=== PATIENT | male | born 1965 | race Caucasian/White ===

== ENCOUNTER 2020-03-18 17:50 | Emergency (ER) | payer OTHER ==
[~2020-03-18] VITALS: Ht 182.9 cm; Wt 92.2 kg
--- NOTE | 2020-03-18 17:55 | PHYS DOC ---
Past History Past Medical History: High Cholesterol, Other Past Medical History Circumcision Smoking: Non-smoker Alcohol Use: Rarely Drug Use: None General Adult HPI: HPI: ".. I started getting some abd. pain.. yesterday.. deshawn mid and lower... here on the right.... but it has gotten much worse.. maybe it is down near where appendix is..? " Patient is a 54 year old male who presents with above hx and complaints malaise, nausea, intermittent severe abdomen pain, diaphoresis, and tachycardia.. Patient currently follows with local medical clinic but does not have yearly follow-ups. Patient denied any previous cardiac issues. His family history father had WI at age 56. Patient after eating some chicken yesterday developed abdomen pain that has persisted the last 24 hours . The abdomen pain localizes to Rt. Mid and Lower on rebound. Pt. has some Rt. flank tenderness on percussion. . The patient was noted to be very tachycardic on my initial exam. Monitor shows a Afib. rhythm with rapid ventricular response in rates up to 200. There is strain pattern and irregularity consistent with Afib. .. Initial EKG showed a tachycardia which appears to be supra ventricular in origin and ventricle rate 178 bpm. There is a strain pattern in inferior leads. Over all morphology consistent with Afib. Patient has had very little intake since eating out yesterday because of nausea and the Abd. discomfort. Patient denies excessive use of caffeine or drugs or [id number] meds. Patient does not use excessive caffeine use. (Possible two caffeine drinks a day, tea, or pop.). Patient denies any history of A. fib or cardiac dysrhythmias. Some hx of elevated cholesterol. Never has had a cardiac stress test. Patient has no history of kidney stones or colitis with him or family members. Patient does have some localization of his pain in right mid abdomen and flank. Patient did note his urine was somewhat yellow or more concentrated than usual. Patient denies any travel outside [facility]. Patient denies any trauma. Patient denies any immune suppression. Denies any intake of bad food. The patient denies any ill contacts. Patient does not smoke. No history of abdomen surgeries other than circumcision. Review of Systems: Review of Systems: Constitutional: Denies fever or chills Eyes: Denies change in visual acuity HENT: Denies nasal congestion or sore throat Respiratory: Denies cough or shortness of breath Cardiovascular: Complaints of tachycardia GI: Complaints mid and Rt. abdominal pain, nausea,. Denies vomiting, bloody stools or diarrhea : Denies dysuria Musculoskeletal: Denies back pain or joint pain Integument: Diaphoretic Neurologic: Denies headache, focal weakness or sensory changes Endocrine: Denies polyuria or polydipsia Lymphatic: Denies swollen glands Psychiatric: Denies depression or anxiety Heart Score: HEART Score for Chest Pain: HEART Score for Chest Pain Response (Comments) Value History Moderately Suspicious 1 ECG Nonspecific Repolarizatio 1 Age > 65 2 Risk Factors 1 or 2 Risk Factors 1 Troponin < Normal Limit 0 Total 5 Risk Factors: Risk Factors: DM, Current or recent (<one month) smoker, HTN, HLP, family history of CAD, obesity. Risk Scores: Score 0 - 3: 2.5% MACE over next 6 weeks - Discharge Home Score 4 - 6: 20.3% MACE over next 6 weeks - Admit for Clinical Observation Score 7 - 10: 72.7% MACE over next 6 weeks - Early Invasive Strategies Family History: Family History: Father had WI at age 56 Current Medications: Current Meds: See nursing for home meds Allergies: Allergies: No known drug allergies Physical Exam: PE: Constitutional: Well developed, well nourished, moderate acute distress, ill in appearance. [] HENT: Normocephalic, atraumatic, bilateral external ears normal, oropharynx dry, no oral exudates, nose normal. [] Eyes: PERRLA, EOMI, conjunctiva normal, no discharge. [Glasses Neck: Normal range of motion, no tenderness, supple, no stridor. [] Cardiovascular: Tachycardia heart rate with episodes of irregular rhythm, no murmur []Monitor show a Afib . pattern., Rates up into 200 range. Lungs & Thorax: Bilateral breath sounds equal apex on auscultation [] Abdomen: Bowel sounds decreased,, soft, right mid abdomen and flank tenderness, no masses, no pulsatile masses. [] Some right flank percussion pain and some f ocalization on rebound to right low lower and midabdomen. Testicles nontender, circumcised male. Pt. declines rectal exam at this time. ( No hx of abnormal stool in character and color). Skin: Warm, diaphoretic, no erythema, no rash. Pt. has soaked his shirt with sweat. Back: No tenderness, some Rt. lower CVA tenderness. [] Extremities: No tenderness, no cyanosis, no clubbing, ROM intact, no edema. [Does have a positive psoas sign on right heel tap. Patient does have a somewhat guarded gait-but was able to walk to the exam room without significant problem. Neurologic: Alert and oriented X 3, normal motor function, normal sensory function, no focal deficits noted. DTRs +2 patellar and brachial. Psychologic: Affect anxious , judgement normal, mood normal. [] EKG: EKG: My interpretation EKG shows a tachycardia 178 bpm contour abnormality does have some strain pattern inferior leads, overall morphology rhythm appears to be A. fib with a rapid ventricular response [] 1822 Repeat EKG per my interpretation shows a sinus rhythm at 81 bpm and a leftward axis. 2011 hrs. ( The patient spontaneously reverted to a sinus rhythm without Cardizem administered and anticoagulation at time of second IV) Radiology/Procedures: Radiology/Procedures: [address] [address] IMAGING REPORT Signed PATIENT: KAISER PEDROOUNT: [id number] : 1965 LOCATION: ER AGE: 54 SEX: M EXAM STATUS: REG ER ORD. PHYSICIAN: REGI MENCHACA MD REASON: Rt. abd. and flank pain PROCEDURE: CT ABDOMEN PELVIS WO CONTRAST CT scan of the abdomen and pelvis without contrast 03/18/2020 CLINICAL HISTORY: Right-sided abdominal pain. TECHNIQUE: Unenhanced, contiguous, 3 mm axial sections were obtained through the abdomen and pelvis. One or more of the following individualized dose reduction techniques were utilized for this study: 1. Automated exposure control. 2. Adjustment of the mA and/or kV according to patient size. 3. Use of iterative reconstruction technique. FINDINGS: Images through the lung bases demonstrate borderline cardiomegaly. Minimal dependent subsegmental atelectasis is seen involving both lower lobes. Small calcified granulomas are seen involving the right middle lobe and left lower lobe. The liver, spleen, pancreas, and adrenal glands are within normal limits. No renal or ureteral calculus is seen. There is no evidence of obstruction of either collecting system. Mild atherosclerotic calcification of the abdominal aorta is seen. The abdominal aorta tapers normally. The gallbladder is contracted. No free fluid or free air is seen within the abdomen. Air and stool are seen throughout the colon. There is no evidence of bowel obstruction. An appendicolith is seen within the proximal appendix. The appendix is dilated and has a thickened wall. It measures 1.5 cm in diameter. Increased density is seen within the fat surrounding the appendix. These findings are consistent with acute appendicitis. Small extraluminal collections of air are seen within the fat surrounding the appendix consistent with a microperforation. No abscess is seen. Images through the pelvis demonstrate the urinary bladder is slightly contracted. Calcifications are seen within the pelvis consistent with phleboliths. A 2 cm diverticulum is seen projecting posteriorly and laterally from the left aspect of the urinary bladder. No free fluid is noted. Degenerative changes are seen involving the lower thoracic and throughout the lumbar spine along with both hips. IMPRESSION: Findings are seen consistent with acute appendicitis as discussed above. Electronically signed by: Daren Barajas MD (03/18/2020 9:12 PM) [id number] DICTATED AND SIGNED BY: DAREN BARAJAS MD DATE: 03/18/202111 CC: REGI MENCHACA MD; NON,STAFF ~ [][place] [address] IMAGING REPORT Signed PATIENT: KAISER PEDROCCOUNT: [id number] : 1965 LOCATION: ER AGE: 54 SEX: M EXAM STATUS: REG ER ORD. PHYSICIAN: REGI MENCHACA MD REASON: Abdomen pain, a-fib PROCEDURE: ACUTE ABDOMEN SERIES ACUTE ABDOMEN SERIES History: Abdominal pain, atrial fibrillation Comparison: None. Findings: Single view of the chest and single supine and upright views of the abdomen are submitted. There is mild blunting of left costophrenic sulcus likely due to small pleural effusion with adjacent mild atelectasis. Heart size is considered within normal limits. No free air is identified. There is an overall nonobstructive bowel gas pattern. There are calcifications in the pelvis bilaterally although may be phleboliths. Impression: 1. There is a nonobstructive bowel gas pattern. There is a very small left pleural effusion. Electronically signed by: Dejah Del Toro MD (03/18/2020 7:00 PM) [facility] DICTATED AND SIGNED BY: DEJAH DEL TORO MD DATE: 03/18/201899 CC: REGI MENCHACA MD; PCP,NO ~ Course & Med Decision Making: Course & Med Decision Making Pertinent Labs and Imaging studies reviewed. (See chart for details) In the process of starting Cardizem drip patient's rhythm converted to sinus spontaneously. Will hold Cardizem at this time. Plan discussion with cardiology if need for anticoagulation in light of his surgery tonight or tomorrow morning with what appears to be acute appendicitis. CT pending. Will start Rocephin and Flagyl. Second IV. Discussed presentation testing with Dr. Gonzalez- will accept pt. [facility] Discussed presentation, testing with Dr. Brito- he will consult for acute a ppendicitis. Call placed to Cardiology group- Dr. 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 Currently holding anticoagulation-heparin and Cardizem. 2129 No noted repeat episodes of Afib. during ED stay other than the episode when he was check in. Impression: 1. Abdomen Pain- Acute Appendicitis 2. Afib with Rapid ventricular response-(resolved spontaneously) 3. Mild dehydration 4. Leukocytosis count 13 5. Mild elevation in direct bili 0.4 6. Lactic Acid = 0.9 [] Dragon Disclaimer: Dragjeremiah Disclaimer: This electronic medical record was generated, in whole or in part, using a voice recognition dictation system. Departure Departure: Disposition: HOME/RESIDENCE PRIOR TO ADM Condition: STABLE Referrals: PCP,NO (PCP) REGI MENCHACA MD March 18, 2020 17:55
[2020-03-18] MEDS: IV RINGERS SOLUTION,LACTATED 1,000 ML IV SCH (18:14)
[2020-03-18] MEDS: MORPHINE SULFATE 10 MG/ML SYRINGE. SQ ONE (18:15)
[2020-03-18] MEDS: dilTIAZem VIAL 125 MG in IV NORMAL SALINE 100ML 100 ML IV STA (18:28)
[2020-03-18] MEDS: dilTIAZem 25 MG/5 ML VIAL IVP ONE (18:30)
[2020-03-18] MEDS ORDERED: IV NORMAL SALINE 100ML 100 ML ONE (18:46)
--- NOTE | 2020-03-18 19:02 | RAD ---
ACUTE ABDOMEN SERIES History: Abdominal pain, atrial fibrillation Comparison: None. Findings: Single view of the chest and single supine and upright views of the abdomen are submitted. There is mild blunting of left costophrenic sulcus likely due to small pleural effusion with adjacent mild atelectasis. Heart size is considered within normal limits. No free air is identified. There is an overall nonobstructive bowel gas pattern. There are calcifications in the pelvis bilaterally although may be phleboliths. Impression: 1. There is a nonobstructive bowel gas pattern. There is a very small left pleural effusion. Electronically signed by: Vamsi Del Toro MD (03/18/2020 7:00 PM) [facility]
[2020-03-18] MEDS: KETOROLAC 30 MG/ML VIAL. IVP ONE (19:06)
[2020-03-18] MEDS: ONDANSETRON PF 4 MG/2 ML VIAL. IVP ONE (19:06)
[2020-03-18] MEDS: FAMOTIDINE 20 MG/2 ML VIAL IVP ONE (19:06)
[2020-03-18] MEDS: ASPIRIN 325 MG TABLET PO ONE (19:07)
[2020-03-18 19:36] LABS: BASO % 0 % (0-3); EOS % 0 % (0-3); HEMATOCRIT 46.3 % (39.0-53.0); HEMOGLOBIN 15.4 g/dL (13.0-17.5); LYMPH # 0.6 x10^3/uL (1.0-4.8); LYMPH % 5 % (24-48); MEAN CORPUSCULAR HEMOGLOBIN 32 pg (25-35); MEAN CORPUSCULAR HGB CONC 33 g/dL (31-37); MEAN CORPUSCULAR VOLUME 95 fL (79-100); MONO # 0.8 x10^3/uL (0.0-1.1); MONO % 6 % (0-9); NEUT # 11.5 x10^3uL (1.8-7.7); NEUT % 89 % (31-73); PLATELET COUNT 196 x10^3/uL (140-400); RED CELL DISTRIBUTION WIDTH 13.3 % (11.5-14.5)
[2020-03-18 19:45] LABS: CALCIUM 8.8 mg/dL (8.5-10.1); CREATININE 1.2 mg/dL (0.7-1.3); GFR 62.6; POTASSIUM 3.6 mmol/L (3.5-5.1)
[2020-03-18 19:49] LABS: ALBUMIN 3.7 g/dL (3.4-5.0); DIRECT BILIRUBIN 0.4 mg/dL (0.0-0.2); TOTAL BILIRUBIN 0.9 mg/dL (0.2-1.0); TOTAL PROTEIN 7.3 g/dL (6.4-8.2)
[2020-03-18 20:03] LABS: BARBITURATES NEG (NEG); BENZODIAZEPINES NEG (NEG); CANNABINOIDS NEG (NEG); COCAINE NEG (NEG); METHADONE NEG (NEG); OPIATES NEG (NEG); PHENCYCLIDINE NEG (NEG)
[2020-03-18 20:04] LABS: AMPHETAMINE/METHAMPHETAMINE NEG (NEG)
[2020-03-18 20:15] LABS: BILIRUBIN,URINE NEG (NEG); CLARITY,URINE CLEAR; COLOR,URINE YELLOW; GLUCOSE,URINE NEG (NEG)
[2020-03-18 20:16] LABS: NITRITE,URINE NEG (NEG); UROBILINOGEN,URINE 0.2 mg/dL (0.2 mg/dL)
[2020-03-18 20:17] LABS: BACTERIA,URINE FEW /HPF (0-FEW); HYALINE CASTS, URINE FEW /HPF; SQUAMOUS EPITHELIAL CELL,UR FEW /LPF; WBC,URINE 0 /HPF (0-4)
[2020-03-18] MEDS ORDERED: cefTRIAXone SODIUM 1 GM VIAL ONE (21:14)
[2020-03-18] MEDS ORDERED: IV NORMAL SALINE 50ML 50 ML ONE (21:14)
--- NOTE | 2020-03-18 21:15 | RAD ---
CT scan of the abdomen and pelvis without contrast 03/18/2020 CLINICAL HISTORY: Right-sided abdominal pain. TECHNIQUE: Unenhanced, contiguous, 3 mm axial sections were obtained through the abdomen and pelvis. One or more of the following individualized dose reduction techniques were utilized for this study: 1. Automated exposure control. 2. Adjustment of the mA and/or kV according to patient size. 3. Use of iterative reconstruction technique. FINDINGS: Images through the lung bases demonstrate borderline cardiomegaly. Minimal dependent subsegmental atelectasis is seen involving both lower lobes. Small calcified granulomas are seen involving the right middle lobe and left lower lobe. The liver, spleen, pancreas, and adrenal glands are within normal limits. No renal or ureteral calculus is seen. There is no evidence of obstruction of either collecting system. Mild atherosclerotic calcification of the abdominal aorta is seen. The abdominal aorta tapers normally. The gallbladder is contracted. No free fluid or free air is seen within the abdomen. Air and stool are seen throughout the colon. There is no evidence of bowel obstruction. An appendicolith is seen within the proximal appendix. The appendix is dilated and has a thickened wall. It measures 1.5 cm in diameter. Increased density is seen within the fat surrounding the appendix. These findings are consistent with acute appendicitis. Small extraluminal collections of air are seen within the fat surrounding the appendix consistent with a microperforation. No abscess is seen. Images through the pelvis demonstrate the urinary bladder is slightly contracted. Calcifications are seen within the pelvis consistent with phleboliths. A 2 cm diverticulum is seen projecting posteriorly and laterally from the left aspect of the urinary bladder. No free fluid is noted. Degenerative changes are seen involving the lower thoracic and throughout the lumbar spine along with both hips. IMPRESSION: Findings are seen consistent with acute appendicitis as discussed above. Electronically signed by: Daren Barajas MD (03/18/2020 9:12 PM) [id number]
[2020-03-18 21:44] VITALS: BP 123/92
--- NOTE | 2020-03-19 06:32 | EKG ---
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
--- NOTE | 2020-03-19 06:32 | EKG ---
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
[2020-03-19] MEDS ORDERED: IV RINGERS SOLUTION,LACTATED 1,000 ML IV SCH (09:00)
== END 2020-03-18 22:20 | disposition short-term general hospital (02) ==
LOC: ER 17:50
DX: K35.80 Unspecified acute appendicitis (principal); I48.91 Unspecified atrial fibrillation; E86.0 Dehydration; D72.829 Elevated white blood cell count, unspecified; E78.00 Pure hypercholesterolemia, unspecified
CPT/HCPCS: 36415; 74022; 74176; 80048; 80061; 80076; 80307; 81001; 82150; 82550; 83605; 83690; 83735; 84484; 85025; 85610; 85730; 93005; 96365; 96375; 99285; J0696; J1885; J2405; J3490; J7120